=== PATIENT | female | born 1965 | race Two or more races ===

== ENCOUNTER 2017-10-16 19:17 | Emergency (ER) | payer OTHER ==
[~2017-10-16] VITALS: Ht 160 cm; Wt 106.1 kg
[2017-10-16 19:45] VITALS: BP 137/81
[2017-10-16 20:20] VITALS: BP 137/81
--- NOTE | 2017-10-16 20:55 | Emergency Room Report ---
History of Present Illness General Chief Complaint: Allergic Reaction Source: Patient Present Illness HPI 52-year-old female no past medical history presenting with rash to arms and legs. States that it's very itchy, she takes Benadryl and it goes away. No shortness of breath no wheezing. States that she believes that her roommates are putting something in her drink that are making her allergic. She states she went to her doctor's office and was angry because he did not do any blood work Allergies: Uncoded Allergies: SULFA (Allergy, Unknown, 10/16/17) Patient History Past Medical History: see triage record Past Surgical History: none Pertinent Family History: none Reviewed Nursing Documentation: PMH: Agreed, PSxH: Agreed Nursing Documentation-PMH Past Medical History: Deferred Review of Systems All Other Systems: negative except mentioned in HPI Physical Exam Vital Signs Date Time Temp Pulse Resp B/P (MAP) Pulse Ox O2 Delivery O2 Flow Rate FiO2 10/16/17 19:20 98.6 101 20 137/81 95 Room Air 98.6 Sp02 EP Interpretation: reviewed, normal General Appearance: normal inspection, well appearing, no apparent distress, alert, GCS 15, non-toxic Head: normocephalic, atraumatic Eyes: bilateral eye normal inspection, bilateral eye PERRL, bilateral eye EOMI ENT: normal ENT inspection, normal pharynx, normal voice, moist mucus membranes Neck: normal inspection, full range of motion, supple Respiratory: normal inspection, lungs clear, normal breath sounds, no respiratory distress, no retraction, no wheezing, speaking full sentences, chest symmetrical Cardiovascular #1: normal inspection, regular rate, rhythm, normal capillary refill Cardiovascular #2: 2+ radial (R), 2+ radial (L) Gastrointestinal: normal inspection, non tender, soft, non-distended, no guarding Musculoskeletal: other - resolving rash noted to arms, blanching, nontender Neurologic: normal inspection, alert, oriented x3, responsive, motor strength/ tone normal, sensory intact, normal gait, speech normal Psychiatric: normal inspection, judgement/insight normal, memory normal Skin: warm/dry Medical Decision Making Diagnostic Impression: Primary Impression: Allergic reaction ER Course 52-year-old female with rash DDX: Allergic reaction vs. eczema vs. contact dermatitis vs. viral exanthem vs cellulitis Other serious diagnosis such as TSS, meningococcemia, SJS/TEN, DRESS, necrotizing fasiitis are unlikely in this case given benign history/physical Plan: Already took Benadryl ER course: Patient has remained stable in ED Rash has resolved Disposition: Patient will be discharged to home. Strict return precautions discussed with patient such as fever, chills, rapid spread of rash, chest pain, sob, throat swelling, n/v/d. Patient is to follow up with their PMD within 5 days. Patient verbalized understanding and agrees with plan. Also told to follow-up with allergy immunology doctor if symptoms are persistent Please note that this Emergency Department Report was dictated using [employer] laborer technology software, occasionally this can lead to erroneous entry secondary to interpretation by the dictation equipment Last Vital Signs Date Time Temp Pulse Resp B/P (MAP) Pulse Ox O2 Delivery O2 Flow Rate FiO2 10/16/17 19:20 98.6 101 20 137/81 95 Room Air 98.6 Disposition: HOME, SELF-CARE Condition: Improved Referrals: NOT CHOSEN IPA/MD,REFERRING (PCP) Patient Instructions: Allergies Additional Instructions: PLEASE SEE AN ALLERGY IMMUNOLOGY DOCTOR IN ONE WEEK Charity Novoa M.D. Oct 16, 2017 20:55
== END 2017-10-16 20:20 | disposition home or self-care (01) ==
LOC: EMR 19:17
DX: T78.40XA Allergy, unspecified, initial encounter (principal); X58.XXXA Exposure to other specified factors, initial encounter; R21 Rash and other nonspecific skin eruption
CPT/HCPCS: 99282